=== PATIENT | male | born 1985 | race Caucasian/White ===

== ENCOUNTER 2017-04-06 14:11 | Emergency (ER) | payer OTHER ==
[~2017-04-06] VITALS: Ht 165.1 cm; Wt 77.8 kg
[2017-04-06 14:13] VITALS: TEMP 36.7; Ht 165.1 cm; Wt 77.8 kg
[2017-04-06 15:12] LABS: BASO % 0.4 %; BASO ABS # 0.06 K/uL (0-0.2); COMPLETE YES; EOS % 2.1 %; HEMATOCRIT 48.3 % (42-52); IG% 0.2 %; LYMPH % 26.7 %; LYMPH ABS # 3.64 K/uL (1.2-3.4); MEAN CELL VOLUME 86.7 fL (80-100); MEAN CORPUSCULAR HEMOGLOBIN 29.1 pg (25-34); MEAN CORPUSCULAR HGB CONC 33.5 g/dl (32-36); MEAN PLATELET VOLUME 9.3 fL (7.4-10.4); MONO % 4.9 %; NEUT % 65.7 %; PLATELET COUNT 237 K/uL (130-400); RED BLOOD COUNT 5.57 M/uL (4.7-6.1); WHITE BLOOD COUNT 13.61 K/uL (4.8-10.8)
[2017-04-06 15:28] LABS: ALT/SGPT 36 U/L (12-78); AST/SGOT 21 U/L (15-37); BLOOD UREA NITROGEN 6 mg/dl (7-18); BUN/CREATININE RATIO 6.1 (10-20); CALCIUM 8.8 mg/dl (8.5-10.1); CARBON DIOXIDE 29 mmol/L (21-32); CHLORIDE 108 mmol/L (98-107); CREATININE 0.94 mg/dl (0.60-1.40); GLUCOSE 79 mg/dl (70-99); POTASSIUM 4.2 mmol/L (3.5-5.1); SODIUM 142 mmol/L (136-145)
[2017-04-06] MEDS ORDERED: MULT-506 PO (15:37)
[2017-04-06] MEDS ORDERED: LAMO25TA PO (15:37)
[2017-04-06] MEDS ORDERED: FLUO10CA48 PO (15:37)
[2017-04-06] MEDS ORDERED: PRAZ1CAP10 PO (15:37)
[2017-04-06 15:38] LABS: ALB/GLOB RATIO 1.5 (0.9-2); ALKALINE PHOSPHATASE 87 U/L (45-117); THYROID STIMULATING HORMONE 0.583 uIu/ml (0.300-4.500)
--- NOTE | 2017-04-06 15:43 | DIAGNOSTIC IMAGING REPORT ---
HEAD CT NONCONTRAST CT DOSE: 537.48 mGy.cm HISTORY: Headache. EVALUATE ALTERED MENTAL STATUS/WEAKNESS TECHNIQUE: Multiaxial CT images of the head were performed without the use of intravenous contrast. Automated exposure control was utilized for this study. Comparison: None. Findings: The paranasal sinuses and mastoid air cells are clear. The calvarium and skull base are intact. The ventricles and sulci are within normal limits. There is no mass, hematoma, midline shift, or acute infarct. Impression: No acute intracranial abnormality. Electronically signed by: Nii Gomez M.D. 04/06/2017 3:42 PM Dictated Date/Time: 04/06/2017 3:33 PM
[2017-04-06 16:30] VITALS: BP 134/84; PULSE 67; O2SAT 98
--- NOTE | 2017-04-06 18:01 | EMERGENCY ROOM VISIT NOTE ---
History Report prepared by Beckie: Renaldo Damon Under the Supervision of: Dr. Mark Lorenzo M.D. First contact with patient: 14:46 Chief Complaint: HEADACHE Stated Complaint: ELLIS, FATIGUED, CLOUDY HEADED History of Present Illness The patient is a 31 year old male who presents to the Emergency Room with complaints of two syncopal episodes occurring two days ago. He believes that he likely had a panic attack. He has a history of tinnitus. The patient states "it felt like I had cotton balls in my ears" prior to him passing out. He currently complains of intermittent headaches. Per significant other, the patient passed out twice. She states that she caught and lowered him to the floor the first time, but was not able to catch him the second time. She previously worked in a [employer] facility and feels that the patient likely had a seizure. She states that the patient appeared very "pale", "sweaty", and "rigid" during the episodes and was unable to speak. The patient has no history of seizures. He denies any loss of bowel or bladder continence. He notes that he was confused following the episode. The patient currently denies any shortness of breath, vomiting, or chest pain. He hit the left side of his face during the fall, and cut his lip. He does not believe that he bit his tongue. The patient notes that he has a history of similar symptoms occurring in stressful situations, but has never passed out from them before. He has a history of PTSD. The patient is in need of a tetanus booster as it has been about 10 years, he [facility] Source of History: patient, spouse/significant other Onset: Two days ago Quality: other (syncope) Timing: other (two episodes) Associated Symptoms: + headache (intermittent), No chest pain, No SOB, No vomiting Review of Systems See HPI for pertinent positives & negatives. A total of 10 systems reviewed and were otherwise negative. Past Medical & Surgical Medical Problems: (1) Biliary colic (2) Cholelithiasis (3) Gallstones (4) No Known Active Medical Problems (5) Sludge in gallbladder Surgical Problems: (1) Hx laparoscopic cholecystectomy Social History Smoking Status: Current Every Day Smoker Alcohol Use: occasionally Marital Status: Housing Status: lives with family Occupation Status: employed Current/Historical Medications Scheduled Fluoxetine (Prozac), 10 MG PO QAM Lamotrigine (Lamictal), 25 MG PO QAM Multivitamin (Multivitamin), 1 TAB PO DAILY Prazosin Hcl (Prazosin), 1 MG PO HS Allergies Coded Allergies: No Known Allergies (Unverified , 04/06/17) Physical Exam Vital Signs Date Time Temp Pulse Resp B/P (MAP) Pulse Ox O2 Delivery O2 Flow Rate FiO2 04/06/17 16:30 67 16 134/84 98 Room Air 04/06/17 15:02 81 16 113/74 96 Room Air 04/06/17 14:13 36.7 87 18 117/75 98 Room Air Physical Exam GENERAL: Patient is in no acute distress. HEENT: Abrasion without signs of infection to the left maxillary face. No bony step-off to suggest fracture. Normal bite. PERRL. Mucous membranes are moist. NECK: No stridor, no adenopathy, no meningismus, trachea is midline. LUNGS: Clear to auscultation bilaterally, no wheeze, no rhonchi, breath sounds equal. HEART: Without murmurs gallops or rubs, regular rate and rhythm. ABDOMEN: Soft, nontender, bowel sounds positive, no hernias, no peritonitis. EXTREMITIES: No cyanosis or edema, full range of motion of all the joints without pain or difficulty, no signs for acute trauma. NEUROLOGIC: Oriented x 3, no acute motor or sensory deficits, no focal weakness. SKIN: No rash, no jaundice, no diaphoresis. Medical Decision & Procedures ER Provider Diagnostic Interpretation: CT results as stated below per my review and radiologist interpretation: HEAD CT NONCONTRAST Findings: The paranasal sinuses and mastoid air cells are clear. The calvarium and skull base are intact. The ventricles and sulci are within normal limits. There is no mass, hematoma, midline shift, or acute infarct. Impression: No acute intracranial abnormality. Electronically signed by: Nii Gomez M.D. Laboratory Results 04/06/17 15:00 Red Blood Count 5.57, Mean Corpuscular Volume 86.7, Mean Corpuscular Hemoglobin 29.1, Mean Corpuscular Hemoglobin Concent 33.5, Mean Platelet Volume 9.3, Neutrophils (%) (Auto) 65.7, Lymphocytes (%) (Auto) 26.7, Monocytes (%) (Auto) 4.9, Eosinophils (%) (Auto) 2.1, Basophils (%) (Auto) 0.4, Neutrophils # (Auto) 8.93, Lymphocytes # (Auto) 3.64, Monocytes # (Auto) 0.67, Eosinophils # (Auto) 0.28, Basophils # (Auto) 0.06 04/06/17 15:00 Test 04/06/17 15:00 White Blood Count 13.61 K/uL (4.8-10.8) Red Blood Count 5.57 M/uL (4.7-6.1) Hemoglobin 16.2 g/dL (14.0-18.0) Hematocrit 48.3 % (42-52) Mean Corpuscular Volume 86.7 fL (80-100) Mean Corpuscular Hemoglobin 29.1 pg (25-34) Mean Corpuscular Hemoglobin Concent 33.5 g/dl (32-36) Platelet Count 237 K/uL (130-400) Mean Platelet Volume 9.3 fL (7.4-10.4) Neutrophils (%) (Auto) 65.7 % Lymphocytes (%) (Auto) 26.7 % Monocytes (%) (Auto) 4.9 % Eosinophils (%) (Auto) 2.1 % Basophils (%) (Auto) 0.4 % Neutrophils # (Auto) 8.93 K/uL (1.4-6.5) Lymphocytes # (Auto) 3.64 K/uL (1.2-3.4) Monocytes # (Auto) 0.67 K/uL (0.11-0.59) Eosinophils # (Auto) 0.28 K/uL (0-0.5) Basophils # (Auto) 0.06 K/uL (0-0.2) RDW Standard Deviation 41.1 fL (36.4-46.3) RDW Coefficient of Variation 12.9 % (11.5-14.5) Immature Granulocyte % (Auto) 0.2 % Immature Granulocyte # (Auto) 0.03 K/uL (0.00-0.02) Anion Gap 5.0 mmol/L (3-11) Est Creatinine Clear Calc Drug Dose 109.5 ml/min Estimated GFR () 124.7 Estimated GFR (Non- 107.6 BUN/Creatinine Ratio 6.1 (10-20) Calcium Level 8.8 mg/dl (8.5-10.1) Total Bilirubin 0.6 mg/dl (0.2-1) Aspartate Amino Transf (AST/SGOT) 21 U/L (15-37) Alanine Aminotransferase (ALT/SGPT) 36 U/L (12-78) Alkaline Phosphatase 87 U/L (45-117) Troponin I < 0.015 ng/ml (0-0.045) Total Protein 7.1 gm/dl (6.4-8.2) Albumin 4.3 gm/dl (3.4-5.0) Globulin 2.8 gm/dl (2.5-4.0) Albumin/Globulin Ratio 1.5 (0.9-2) Thyroid Stimulating Hormone (TSH) 0.583 uIu/ml (0.300-4.500) Laboratory results reviewed by me. ECG Indication: syncope Rate (beats per minute): 84 Rhythm: normal sinus Findings: no acute ischemic change, no ectopy ED Course 1447: The patient was evaluated in room B3B. A complete history and physical exam was performed. 1600: Reevaluated the patient. Discussed results and discharge instructions: he verbalized understanding and agreement. The patient is ready for discharge. Medical Decision The patient is a 31 year old male who presents to the ED with complaints of two syncopal episodes. Differential diagnoses considered include syncope, syncope with seizure, dysrhythmia, seizure, ICH, skull fracture, facial fracture, electrolyte imbalance and anemia. Blood Pressure Screening: Patient was found to have normal blood pressure on screening and does not require follow-up. Medication Reconciliation: I attest that I have personally reviewed the patient' s current medication list. There is a mild leukocytosis, this could be consistent with infection or the stress of his current situation. No anemia. No significant electrolyte abnormality, kidney failure or hepatitis. The patient appears to be in a euthyroid state. EKG shows a normal sinus rhythm, no acute ischemia. Cardiac enzyme testing 1 is not consistent with acute cardiac injury. Brain CT shows no acute bleed or mass effect. On exam, there was no evidence for facial fracture. The patient was doing well. I discussed this case with the on-call neurologist. At this point, the patient was not felt in need of antiseizure medication. He is being discharged to be seen in the outpatient office. He cannot drive. He was encouraged to return for worsening symptoms. Of note, the patient was due for a tetanus booster however, [facility] as there is no cost to him at the ID. Consults Time Called: [id number] Consulting Physician: Dr. Lawrence -Neurology Returned Call: [phone] Discussed the patient's case. Dr. Lawrence recommends that the patient be referred to the office for outpatient testing. He recommends that no seizure medications be given and to inform the patient that he should not drive until he is further tested. Impression Primary Impression: Seizure-like activity Additional Impression: Head trauma Scribe Attestation The scribe's documentation has been prepared under my direction and personally reviewed by me in its entirety. I confirm that the note above accurately reflects all work, treatment, procedures, and medical decision making performed by me. Departure Information Dispostion Home / Self-Care Referrals No Doctor, Assigned (PCP) Forms HOME CARE DOCUMENTATION FORM, IMPORTANT VISIT INFORMATION Patient Instructions My [facility] Additional Instructions no driving until given clearance by neurology stay well hydrated rest well tylenol for pain or use motrin return for worsening symptoms call and set up neurology appt--call in the am Problem Qualifiers
== END 2017-04-06 16:30 | disposition home or self-care (01) ==
LOC: C.EDB 14:13
DX: R56.9 Unspecified convulsions (principal); S09.90XA Unspecified injury of head, initial encounter; W19.XXXA Unspecified fall, initial encounter; F43.10 Post-traumatic stress disorder, unspecified; K80.50 Calculus of bile duct without cholangitis or cholecystitis without obstruction; F17.210 Nicotine dependence, cigarettes, uncomplicated; Z79.899 Other long term (current) drug therapy

== ENCOUNTER → 2017-04-23 | Outpatient (CLI) | payer OTHER ==
[~2017-04-23] MED LIST: FLUO10CA48 PO; LAMO25TA PO; MULT-506 PO; PRAZ1CAP10 PO
--- NOTE | 2017-04-23 16:58 | EEG Procedure Note ---
EEG Procedure Note Date of Service Apr 23, 2017. Start / End Times Start Time: 1:35 PM End Time: 1:56 PM Referring Physician TREY Thayer History This is a 31-year-old male with syncope. EEG for further evaluation of possible seizure etiology. Home Medication List Scheduled Fluoxetine (Prozac), 10 MG PO QAM Lamotrigine (Lamictal), 25 MG PO QAM Multivitamin (Multivitamin), 1 TAB PO DAILY Prazosin Hcl (Prazosin), 1 MG PO HS Description This is a 21 electrode EEG with a single channel dedicated to limited EKG. The electrodes were placed in accordance with the International 10-20 system. At the start of the recording the patient was in an awake state. Background was well organized and composed of symmetric mixed alpha and beta frequencies. There was a symmetric well-formed moderate amplitude 11-12Hz posterior dominant rhythm that was reactive to eye opening and closure. Hyperventilation with good effort produced no abnormalities. Intermittent photic stimulation at various frequencies produced no abnormalities. There was no state changes or sleep transients. Interpretation This is a normal awake only routine EEG. There was no electrographic seizures or epileptiform discharges. Clinical Correlation A normal EEG does not rule out epilepsy if there is a strong clinical suspicion.
== END | disposition home or self-care (01) ==
LOC: C.NEUR 13:15
PROVIDERS: ATTEND Physician Assistant
DX: R55 Syncope and collapse (principal)